=== PATIENT | female | born 1975 | race African-American/Black ===

== ENCOUNTER 2021-11-21 09:38 | Outpatient (CLI) | payer OTHER | END 2021-11-21 09:39 | disposition home or self-care (01) | LOC: CSHLAB 09:38 | PROVIDERS: ATTEND Obstetrics & Gynecology | DX: Z01.812 Encounter for preprocedural laboratory examination (principal); Z20.822 Contact with and (suspected) exposure to COVID-19; D25.9 Leiomyoma of uterus, unspecified; N92.0 Excessive and frequent menstruation with regular cycle | CPT/HCPCS: 84703; 85027; 86850; 86900; 86901; U0003; U0005 ==

== ENCOUNTER 2021-11-23 08:45 | Inpatient (IN) | payer OTHER ==
[2021-11-16 11:40] VITALS: BMI 27.2
[2021-11-21 11:15] LABS: Hemoglobin 10.7 g/dL (12.0-15.5); Mean Corpuscular HGB CONC 29.9 g/dL (32.0-36.0); Mean Corpuscular Hemoglobin 24.1 pg (27.0-33.0); Mean Corpuscular Volume 80.6 fl (81.6-98.3); Mean Platelet Volume 9.6 fl (7.4-10.4); Platelet Count 384 10x3/uL (150-450); RBC Distribution Width 24.4 % (11.5-14.5); Red Blood Cell (RBC) Count 4.44 10x6/uL (3.90-5.03); White Blood Cell (WBC) Count 6.2 10x3/uL (3.5-10.5)
[2021-11-21 11:35] LABS: BHCG - Serum Negative (NEGATIVE); Pregs Control Background? CLEAR/WHITE (CLR/WHITE); Pregs Control Bar Appear? YES (CONTROL BAR)
[2021-11-21 19:45] LABS: SARS-CoV-2 PCR by NAA Not Detected (NotDetected)
[2021-11-23] MEDS ORDERED: Gabapentin 300 MG CAP ONE (09:02)
[2021-11-23] MEDS ORDERED: CeleCOXIB 100 MG CAP ONE (09:02)
[2021-11-23] MEDS ORDERED: Lidocaine 1% MPF 2 ML VIAL ONE (09:03)
[2021-11-23] MEDS ORDERED: Famotidine/PF 20 mg/2ml Vial ONE (09:03)
[2021-11-23] MEDS ORDERED: Ondansetron PF 4 MG/2 ML Vial ONE (10:32)
[2021-11-23] MEDS ORDERED: PROPOFOL 20 ML ONE (10:32)
[2021-11-23] MEDS ORDERED: Dexamethasone 4 mg/ml Vial ONE (10:32)
[2021-11-23] MEDS ORDERED: Rocuronium Bromide 10 MG/ML (10ML VIAL) ONE (10:32)
[2021-11-23] MEDS ORDERED: Midazolam HCl 2 mg/2 ml Vial ONE (10:32)
[2021-11-23] MEDS ORDERED: Glycopyrrolate 0.2 MG/ML 5 ML SYRINGE ONE (10:32)
[2021-11-23] MEDS ORDERED: Fentanyl 250 MCG/5 ML VIAL ONE (10:32)
[2021-11-23] MEDS ORDERED: Lidocaine 1% PF 5 ML VIAL ONE (10:32)
[2021-11-23] MEDS ORDERED: Ketorolac Tromethamine 30 MG/ML VIAL ONE ×2 (10:33)
[2021-11-23] MEDS ORDERED: EPINEPHrine 1 MG/ML AMP ONE (10:41)
[2021-11-23] MEDS ORDERED: Bupivacaine PF 0.5% 30 ML VIAL ONE (10:42)
[2021-11-23] MEDS ORDERED: Meperidine HCl/PF 25 MG/ML VIAL ONE (12:30)
[2021-11-23] MEDS ORDERED: Simethicone Chewable 80 MG TAB PO PRN (12:35)
[2021-11-23] MEDS ORDERED: Zolpidem Tartrate 5 MG TAB PO PRN ×2 (12:35→12:45)
[2021-11-23] MEDS ORDERED: Ondansetron PF 4 MG/2 ML Vial IVP PRN ×2 (12:35→12:45)
[2021-11-23] MEDS ORDERED: Promethazine HCl 25 MG/ML VIAL IM PRN ×2 (12:35→12:45)
[2021-11-23] MEDS ORDERED: fentaNYL Citrate/PF 1,000 MCG in Sodium Chloride 0.9% 30 ML IV PRN (12:45)
[2021-11-23] MEDS ORDERED: diphenhydrAMINE 50 MG/ML VIAL IVP PRN (12:45)
[2021-11-23] MEDS ORDERED: Naloxone HCl 0.4 mg/ml Vial IV PRN (12:45)
[2021-11-23] MEDS ORDERED: diphenhydrAMINE 25 MG CAP PO PRN (12:45)
[2021-11-23] MEDS ORDERED: diphenhydrAMINE 50 MG/ML VIAL IM PRN (12:45)
[2021-11-23] MEDS ORDERED: Communication Order-Pharmacy FS SCH (12:45)
[2021-11-23] MEDS: Sodium Chloride 0.9% 1,000 ML IV SCH ×2 (14:45→23:01)
[2021-11-23] MEDS: Ketorolac Tromethamine 30 MG/ML VIAL IVP SCH (18:36)
[2021-11-24] MEDS: Ketorolac Tromethamine 30 MG/ML VIAL IVP SCH ×4 (01:24→18:44)
[2021-11-24 05:42] LABS: Hemoglobin 9.5 g/dL (12.0-15.5); Mean Corpuscular HGB CONC 30.9 g/dL (32.0-36.0); Mean Corpuscular Hemoglobin 24.5 pg (27.0-33.0); Mean Corpuscular Volume 79.1 fl (81.6-98.3); Mean Platelet Volume 9.7 fl (7.4-10.4); Platelet Count 343 10x3/uL (150-450); RBC Distribution Width 23.4 % (11.5-14.5); Red Blood Cell (RBC) Count 3.88 10x6/uL (3.90-5.03); White Blood Cell (WBC) Count 12.4 10x3/uL (3.5-10.5)
[2021-11-24] MEDS: Sodium Chloride 0.9% 1,000 ML IV SCH ×2 (06:37→14:45)
[2021-11-24] MEDS ORDERED: HYDROcodone/Acetaminophen 5/325 mg Tablet PO PRN (09:44)
[2021-11-24] MEDS: HYDROcodone/Acetaminophen 5/325 mg Tablet PO PRN ×2 (10:37→21:52)
[2021-11-25] MEDS: Ketorolac Tromethamine 30 MG/ML VIAL IVP SCH ×2 (00:03→06:22)
[2021-11-25] MEDS: Sodium Chloride 0.9% 1,000 ML IV SCH ×2 (07:14→07:15)
[2021-11-25 08:03] VITALS: BP 109/55; TEMP 98.9
[2021-11-25] MEDS: HYDROcodone/Acetaminophen 5/325 mg Tablet PO PRN (08:20)
== END 2021-11-25 09:50 | disposition home or self-care (01) | DRG 743 ==
LOC: CSHSDC 08:45 → CSHPED 14:33
PROVIDERS: ADMIT Family Medicine; ATTEND Obstetrics & Gynecology
PROC: 0UT90ZL Resection of Uterus, Supracervical, Open Approach (ICD-10-PCS; principal; 2021-11-23)
PROC: 0UT70ZZ Resection of Bilateral Fallopian Tubes, Open Approach (ICD-10-PCS; 2021-11-23)
PROC: 0UT10ZZ Resection of Left Ovary, Open Approach (ICD-10-PCS; 2021-11-23)
DX: D25.9 Leiomyoma of uterus, unspecified (principal); N92.0 Excessive and frequent menstruation with regular cycle; Z98.51 Tubal ligation status; K66.0 Peritoneal adhesions (postprocedural) (postinfection); Z20.822 Contact with and (suspected) exposure to COVID-19
CPT/HCPCS: 36415; 84703; 85027; 86850; 86900; 86901; 88307; J0171; J0690; J1100; J1885; J2175; J2250; J2405; J2704; J3010; J3490; J7050; S0020; S0028; U0003; U0005